=== PATIENT | male | born 1985 | race Caucasian/White ===

== ENCOUNTER 2018-01-24 16:03 | Emergency (ER) | payer OTHER ==
[2018-01-24 16:07] VITALS: BP 105/71; PULSE 73; TEMP 98.2; BMI 28.5
--- NOTE | 2018-01-24 16:12 | PDOC ---
Rapid Medical Evaluation Chief Complaint: Pain Time Seen by Provider: 01/24/18 16:06 Medical Evaluation: Allergies Allergy/AdvReac Type Severity Reaction Status Date / Time No Known Allergies Allergy Verified 10/03/16 14:14 01/24/18 16:07 The patient presents with a chief complaint of: " a bulge in my stomach". First noticed it Tuesday after working out. Denies fever, chills, N/V/D. Normal BM today. States it hurts to lay on it I have performed a brief in-person evaluation of this patient; Pertinent physical exam findings: ambulatory, in no respiratory distress. Ventral hernia, pain to palpation, cannot reduce in RME I have ordered the following: CBC, CMP, PT/INR The patient will proceed to the ED for further evaluation.
[2018-01-24 16:32] LABS: BASO % 0.8 % (0-2.0); EOS % 1.5 % (0-4.5); HEMATOCRIT 45.5 % (35.4-49); HEMOGLOBIN 15.6 GM/dL (11.7-16.9); LYMPH % 36.3 % (8-40); MCH 32.8 pg (25.7-33.7); MCHC 34.3 g/dl (32.0-35.9); MEAN CELL VOLUME 95.5 fl (80-96); MEAN PLT VOLUME 8.3 fl (7.5-11.1); MONO % 9.9 % (3.8-10.2); NEUT % 51.5 % (42.8-82.8); PLATELET COUNT 199 K/MM3 (134-434); RBC 4.76 M/mm3 (4.00-5.60); RDW 13.4 % (11.9-15.9); WHITE BLOOD COUNT 6.8 K/mm3 (4.0-10.0)
[2018-01-24 16:46] LABS: INR 1.1 (0.82-1.09); PROTHROMBIN TIME (PATIENT) 12.4 SEC (9.98-11.88)
[2018-01-24 16:55] LABS: ALBUMIN 4.2 g/dl (3.4-5.0); ALK PHOS 67 U/L (45-117); ANION GAP 9 (8-16); BILIRUBIN,TOTAL 0.5 mg/dL (0.2-1.0); BLOOD UREA NITROGEN 13 mg/dL (7-18); CALCIUM 9.1 mg/dL (8.5-10.1); CHLORIDE 103 mmol/L (98-107); CO2 29 mmol/L (21-32); CREATININE 1.1 mg/dL (0.7-1.3); GLUCOSE,RANDOM 86 mg/dL (74-106); POTASSIUM 4.6 mmol/L (3.5-5.1); SGOT/AST 36 U/L (15-37); SGPT/ALT 41 U/L (12-78); SODIUM 141 mmol/L (136-145); TOT PROT 7.3 g/dl (6.4-8.2)
[2018-01-24 16:57] LABS: URINE APPEARANCE CLEAR; URINE BILIRUBIN NEGATIVE (NEGATIVE); URINE BLOOD NEGATIVE (NEGATIVE); URINE COLOR YELLOW; URINE GLUCOSE (UA) NEGATIVE (NEGATIVE); URINE KETONE NEGATIVE (NEGATIVE); URINE LEUK ESTERASE NEGATIVE (NEGATIVE); URINE NITRITE NEGATIVE (NEGATIVE); URINE PROTEIN NEGATIVE (NEGATIVE); URINE UROBILINOGEN NEGATIVE mg/dL (0.2-1.0)
--- NOTE | 2018-01-24 19:50 | PDOC ---
History of Present Illness - General History Source: Patient <Faizan Capps - Last Filed: 01/24/18 19:48> - General History Source: Patient Exam Limitations: No Limitations - History of Present Illness Initial Comments: 01/24/18 19:54 The patient is a 32 year old male with no significant PMH who presents to the emergency department with a bump on his abdomen over the last 5 days. The patient notes he first noticed the bump after working out on Tuesday. He reports engaging in heavy lifting since then and notes subsequently developing pain around the bump, which is aggravated by moving or lying down on his abdomen. The patient denies chest pain, shortness of breath, headache and dizziness. Denies fever, chills, nausea, vomit, diarrhea and constipation. Denies dysuria, frequency, urgency and hematuria. Allergies: NKA Past surgical history: None reported. Social history: No reported cigarette, alcohol, or drug use. PCP: None reported. <Joselo Hopper - Last Filed: 01/24/18 19:56> - General Chief Complaint: Pain Stated Complaint: Abd pain, possible hernia Time Seen by Provider: 01/24/18 16:06 Past History - Past Medical History COPD: No - Suicide/Smoking/Psychosocial Hx Smoking Status: No Smoking History: Never smoked Number of Cigarettes Smoked Daily: 0 Information on smoking cessation initiated: No Hx Alcohol Use: No Drug/Substance Use Hx: No Substance Use Type: None <Mirna Cappsan - Last Filed: 01/24/18 19:48> <Joselo Hopper - Last Filed: 01/24/18 19:56> - Past Medical History Allergies/Adverse Reactions: Allergies Allergy/AdvReac Type Severity Reaction Status Date / Time No Known Allergies Allergy Verified 01/24/18 16:07 Home Medications: Ambulatory Orders NK [No Known Home Medication] 10/03/16 Review of Systems - Review of Systems Able to Perform ROS?: Yes Comments:: 01/24/18 19:56 CONSTITUTIONAL: Absent: fever, chills, diaphoresis, generalized weakness, malaise, loss of appetite HEENT: Absent: rhinorrhea, nasal congestion, throat pain, throat swelling, difficulty swallowing, mouth swelling, ear pain, eye pain, visual Changes CARDIOVASCULAR: Absent: chest pain, syncope, palpitations, irregular heart rate, lightheadedness , peripheral edema RESPIRATORY: Absent: cough, shortness of breath, dyspnea with exertion, orthopnea, wheezing, stridor, hemoptysis GASTROINTESTINAL: (+) Abdominal bump. Absent: abdominal distension, nausea, vomiting, diarrhea, constipation, melena, hematochezia GENITOURINARY: Absent: dysuria, frequency, urgency, hesitancy, hematuria, flank pain, genital pain MUSCULOSKELETAL: Absent: myalgia, arthralgia, joint swelling SKIN: Absent: rash, itching, pallor HEMATOLOGIC/IMMUNOLOGIC: Absent: easy bleeding, easy bruising, lymphadenopathy, frequent infections ENDOCRINE: Absent: unexplained weight gain, unexplained weight loss, heat intolerance, cold intolerance NEUROLOGIC: Absent: headache, focal weakness or paresthesias, dizziness, unsteady gait, seizure, mental status changes, bladder or bowel incontinence PSYCHIATRIC: Absent: anxiety, depression, suicidal or homicidal ideation, hallucinations. <Joselo Hopper - Last Filed: 01/24/18 19:56> *Physical Exam - Vital Signs Last Vital Signs Temp Pulse Resp BP Pulse Ox 98.2 F 73 18 105/71 100 01/24/18 16:05 01/24/18 16:05 01/24/18 16:05 01/24/18 16:05 01/24/18 16:05 <Faizan Capps - Last Filed: 01/24/18 19:48> - Vital Signs Last Vital Signs Temp Pulse Resp BP Pulse Ox 98.2 F 73 18 105/71 100 01/24/18 16:05 01/24/18 16:05 01/24/18 16:05 01/24/18 16:05 01/24/18 16:05 - Physical Exam Comments: 01/24/18 19:56 GENERAL: Well developed, well nourished. Awake and alert. No acute distress. HEENT: Normocephalic, atraumatic. PERRLA, EOMI. No conjunctival pallor. Sclera are non- icteric. Moist mucous membranes. Oropharynx is clear. NECK: Supple. Full ROM. No JVD. Carotid pulses 2+ and symmetric, without bruits. No thyromegaly. No lymphadenopathy. CARDIOVASCULAR: Regular rate and rhythm. No murmurs, rubs, or gallops. Distal pulses are 2+ and symmetric. PULMONARY: No evidence of respiratory distress. Lungs clear to auscultation bilaterally. No wheezing, rales or rhonchi. ABDOMINAL: (+) Slight hernial defect to midline, completely reducible. Soft. Non-distended. No rebound or guarding. No organomegaly. Normoactive bowel sounds. MUSCULOSKELETAL Normal range of motion at all joints. No bony deformities or tenderness. No CVA tenderness. EXTREMITIES: No cyanosis. No clubbing. No edema. No calf tenderness. SKIN: Warm and dry. Normal capillary refill. No rashes. No jaundice. NEUROLOGICAL: Alert, awake, appropriate. Cranial nerves 2-12 intact. No deficits to light touch and temperature in face, upper extremities and lower extremities. No motor deficits in the in face, upper extremities and lower extremities. Normoreflexic in the upper and lower extremities. Normal speech. Toes are downgoing bilaterally. Gait is normal without ataxia. PSYCHIATRIC: Cooperative. Good eye contact. Appropriate mood and affect. <Joselo Hopper - Last Filed: 01/24/18 19:56> ED Treatment Course - LABORATORY CBC & Chemistry Diagram: 01/24/18 16:23 01/24/18 16:23 - ADDITIONAL ORDERS Additional order review: Laboratory Results 01/24/18 01/24/18 01/24/18 16:45 16:23 16:23 PT with INR 12.40 H INR 1.10 Sodium 141 Potassium 4.6 Chloride 103 Carbon Dioxide 29 Anion Gap 9 BUN 13 Creatinine 1.1 Creat Clearance w eGFR > 60 Random Glucose 86 Calcium 9.1 Total Bilirubin 0.5 D AST 36 D ALT 41 Alkaline Phosphatase 67 Total Protein 7.3 Albumin 4.2 Urine Color Yellow Urine Appearance Clear Urine pH 7.0 Ur Specific [place] 1.018 Urine Protein Negative Urine Glucose (UA) Negative Urine Ketones Negative Urine Blood Negative Urine Nitrite Negative Urine Bilirubin Negative Urine Urobilinogen Negative Ur Leukocyte Esterase Negative 01/24/18 16:23 RBC 4.76 MCV 95.5 MCHC 34.3 RDW 13.4 MPV 8.3 Neutrophils % 51.5 Lymphocytes % 36.3 D Monocytes % 9.9 Eosinophils % 1.5 Basophils % 0.8 <Faizan Capps - Last Filed: 01/24/18 19:48> - LABORATORY CBC & Chemistry Diagram: 01/24/18 16:23 01/24/18 16:23 - ADDITIONAL ORDERS Additional order review: Laboratory Results 01/24/18 01/24/18 01/24/18 16:45 16:23 16:23 PT with INR 12.40 H INR 1.10 Sodium 141 Potassium 4.6 Chloride 103 Carbon Dioxide 29 Anion Gap 9 BUN 13 Creatinine 1.1 Creat Clearance w eGFR > 60 Random Glucose 86 Calcium 9.1 Total Bilirubin 0.5 D AST 36 D ALT 41 Alkaline Phosphatase 67 Total Protein 7.3 Albumin 4.2 Urine Color Yellow Urine Appearance Clear Urine pH 7.0 Ur Specific [place] 1.018 Urine Protein Negative Urine Glucose (UA) Negative Urine Ketones Negative Urine Blood Negative Urine Nitrite Negative Urine Bilirubin Negative Urine Urobilinogen Negative Ur Leukocyte Esterase Negative 01/24/18 16:23 RBC 4.76 MCV 95.5 MCHC 34.3 RDW 13.4 MPV 8.3 Neutrophils % 51.5 Lymphocytes % 36.3 D Monocytes % 9.9 Eosinophils % 1.5 Basophils % 0.8 <Joselo Hopper - Last Filed: 01/24/18 19:56> Medical Decision Making - Medical Decision Making 01/24/18 19:50 Dr. Capps: The scribe's documentation has been prepared under my direction and personally reviewed by me in its entirery. I confirm that the note above accurately reflects all work, treatment, procedures, and medical decision making performed by me. Patient is a small hernial defect. Patient will be referred to general surgery for further consult <Faizan Capps - Last Filed: 01/24/18 19:48> *DC/Admit/Observation/Transfer - Discharge Dispostion Admit: No <Faizan Capps - Last Filed: 01/24/18 19:48> - Attestations Scribe Attestion: 01/24/18 19:56 Documentation prepared by Joselo Hopper, acting as medical care evaluation specialist for Faizan Capps DO. <Joselo Hopper - Last Filed: 01/24/18 19:56> Diagnosis at time of Disposition: Ventral hernia - Discharge Dispostion Disposition: HOME Condition at time of disposition: Stable - Referrals Referrals: Davie Cabrera MD [Staff Physician] - - Patient Instructions Printed Discharge Instructions: DI for Ventral Hernia Additional Instructions: Follow up with the doctor referred to you for possible surgical repair
== END 2018-01-24 20:14 | disposition home or self-care (01) ==
LOC: JER 16:03
DX: K43.9 Ventral hernia without obstruction or gangrene (principal)
CPT/HCPCS: 36415; 80053; 81003; 85025; 85610; 99281-25